=== PATIENT | female | born 1950 | race Caucasian/White ===

== ENCOUNTER 2025-08-15 17:31 | Observation (INO) | payer MEDICARE, SELFPAY ==
[2025-08-15] VITALS (34 sets, daily range): BP systolic 116–161; BP diastolic 63–86; PULSE 66–98; RESP 13–26; O2SAT 92–98; BMI 26.9
--- NOTE | 2025-08-15 17:48 | DI.RAD.S_ITS ---
PROCEDURE: XR CHEST 1V INDICATIONS: chest pain TECHNIQUE: One view of the chest was acquired. COMPARISON: None. FINDINGS: Surgical changes and devices: None. Lungs and pleura: Lungs are clear. No pleural effusions or pneumothorax. Mediastinum: Mediastinal contours appear normal. Heart size is enlarged. Bones and chest wall: No suspicious bony lesions. Overlying soft tissues appear unremarkable. IMPRESSION: No acute pulmonary process. Dictated by: Janie Knox M.D. on 08/15/2025 at 19:31 Approved by: Janie Knox M.D. on 08/15/2025 at 19:31
--- NOTE | 2025-08-15 17:48 | EKG_ITS ---
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
--- NOTE | 2025-08-15 18:03 | ED.CHESTPAIN ---
HPI - Chest Pain General Chief Complaint: Chest Pain Stated Complaint: chest pn 20 min & palpitations Time Seen by Provider: 08/15/25 17:49 Source: patient History of Present Illness HPI narrative: 75-year-old female history of hypertension, dyslipidemia, aspirin 81 mg daily presents with chest discomfort which she describes as a band across her lower chest radiating up towards her arms she describes it as a pressure. This happened 10 times in the past 6 months but had 3 episodes today lasting approximately 15 minutes and then resolving. The 1st time patient was sitting at a computer, neck she was standing the 3rd she was here in the department being evaluated. She states she will feel a little bit hot and sweaty. She feels little bit short of breath. She denies any vomiting but has had nausea with it. She denies any other diarrhea or constipation, no urinary symptoms. No swelling of her extremities. No long distance travel. Patient states home medications are lisinopril, bupropion, Celexa, atorvastatin and aspirin 81 mg daily. She has not had her aspirin today. She has a hip prior hysterectomy, ankle repair, shoulder surgery for rotator cuff. No prior cardiac interventions. She had describes an allergy to meloxicam she has a hot and a rash. Denies tobacco, has 1 or 2 alcoholic drinks most days, no recreational drugs. She is accompanied by a friend. Related Data Allergies Allergy/AdvReac Type Severity Reaction Status Date / Time meloxicam Allergy Rash Verified 08/15/25 17:43 Review of Systems Review of Systems ROS Unobtainable: All systems reviewed & are unremarkable except as noted in HPI and below Patient History Social History Smoking Status: Never smoker Smoking Status: Never smoker Alcohol type: wine Exam Narrative Exam Narrative: GENERAL: Alert and oriented x three, female mild distress, no diaphoresis HEENT: Head normocephalic, atraumatic, EOMI, pupils reactive, face symmetric, moist mucous membranes NECK: Supple, full range of motion CARDIOVASCULAR: Regular rate and rhythm without murmurs, rubs or gallops. No JVD. No edema bilateral lower extremities. RESPIRATORY: Breath sounds equal bilaterally, no wheezes rales or rhonchi. No tachypnea accessory muscle use ABDOMEN: Soft, nontender. Normoactive bowel sounds all 4 quadrants. No guarding or rebound, rigidity, no mass : No CVA tenderness EXTREMITIES: Normal range of motion, no clubbing or edema. Neurovascularly intact NEUROLOGICAL: Cranial nerves II through XII grossly intact. Moving all extremities SKIN: Warm, dry, no petechiae, no rashes or lesions. Initial Vital Signs Initial Vital Signs: Vital Signs Pulse Rate 86 08/15/25 17:42 Respiratory Rate 15 08/15/25 17:42 Pulse Oximetry 96 08/15/25 17:42 Course Orders Ordered: ED Orders 08/15/25 17:48 XR chest 1V Stat EKG-12 Lead Stat 08/15/25 17:56 Complete Blood Count AUTO DIFF Stat Comprehensive Metabolic Panel Stat Lipase Stat Magnesium Stat NT-proBNP (BNP-Adult 18+) Stat Troponin I Stat 08/15/25 18:31 EKG-12 Lead Stat 08/15/25 20:19 Troponin I Stat Nitroglycerin (Nitroglycerin 0.4 Mg Sl Tab) 0.4 mg SL [id number] PRN PRN Reason: Chest Pain Last Admin: 08/15/25 18:16 Dose: 0.4 mg Documented By: FLORENCIO Discontinued Medications Aspirin (Aspirin 81 Mg Chew Tab) 324 mg PO NOW ONE Stop: 08/15/25 17:49 Last Admin: 08/15/25 18:13 Dose: 324 mg Documented By: FLORENCIO Lorazepam (Lorazepam 0.5 Mg Tablet) 0.5 mg PO NOW ONE Stop: 08/15/25 22:16 Last Admin: 08/15/25 22:21 Dose: 0.5 mg Documented By: [place] Vital Signs Vital signs: Vital Signs - 8 hr 08/15/25 17:42 08/15/25 17:43 08/15/25 17:43 Pulse Rate 86 85 85 Respiratory Rate 15 16 13 Blood Pressure 158/86 H Pulse Oximetry 96 95 96 Oxygen Delivery Method Room Air Oxygen Flow Rate 08/15/25 17:43 08/15/25 17:45 08/15/25 17:50 Pulse Rate 84 80 Respiratory Rate 14 Blood Pressure 158/86 H Pulse Oximetry 96 Oxygen Delivery Method Oxygen Flow Rate 08/15/25 17:55 08/15/25 18:00 08/15/25 18:00 Pulse Rate 81 82 Respiratory Rate 26 H Blood Pressure 161/77 H Pulse Oximetry 95 Oxygen Delivery Method Oxygen Flow Rate 08/15/25 18:05 08/15/25 18:10 08/15/25 18:15 Pulse Rate 85 84 87 Respiratory Rate 21 24 21 Blood Pressure Pulse Oximetry 94 94 92 Oxygen Delivery Method Nasal Cannula Oxygen Flow Rate 2 08/15/25 18:16 08/15/25 18:18 08/15/25 18:18 Pulse Rate 81 82 Respiratory Rate 19 Blood Pressure 143/76 H 143/76 H Pulse Oximetry 94 Oxygen Delivery Method Oxygen Flow Rate 08/15/25 18:20 08/15/25 18:20 08/15/25 18:25 Pulse Rate 82 Respiratory Rate 21 Blood Pressure 144/77 H 120/66 Pulse Oximetry 95 Oxygen Delivery Method Nasal Cannula Oxygen Flow Rate 2 08/15/25 18:25 08/15/25 18:30 08/15/25 18:30 Pulse Rate 98 H 87 Respiratory Rate 21 20 Blood Pressure 130/69 Pulse Oximetry 93 95 Oxygen Delivery Method Oxygen Flow Rate 08/15/25 18:35 08/15/25 18:35 08/15/25 18:40 Pulse Rate 80 Respiratory Rate 24 Blood Pressure 130/79 129/77 Pulse Oximetry 96 Oxygen Delivery Method Oxygen Flow Rate 08/15/25 18:40 08/15/25 18:45 08/15/25 18:45 Pulse Rate 81 83 Respiratory Rate 22 22 Blood Pressure 126/75 Pulse Oximetry 96 96 Oxygen Delivery Method Oxygen Flow Rate 08/15/25 18:50 08/15/25 18:50 08/15/25 18:55 Pulse Rate 80 Respiratory Rate 18 Blood Pressure 131/77 122/73 Pulse Oximetry 96 Oxygen Delivery Method Oxygen Flow Rate 08/15/25 18:55 08/15/25 19:00 08/15/25 19:00 Pulse Rate 81 81 Respiratory Rate 20 18 Blood Pressure 116/69 Pulse Oximetry 95 97 Oxygen Delivery Method Oxygen Flow Rate 08/15/25 19:05 08/15/25 19:05 08/15/25 19:10 Pulse Rate 80 Respiratory Rate 20 Blood Pressure 118/67 126/75 Pulse Oximetry 96 Oxygen Delivery Method Oxygen Flow Rate 08/15/25 19:10 08/15/25 19:16 08/15/25 19:16 Pulse Rate 80 83 Respiratory Rate 16 25 H Blood Pressure 142/81 H Pulse Oximetry 97 97 Oxygen Delivery Method Oxygen Flow Rate 08/15/25 19:20 08/15/25 19:20 08/15/25 19:28 Pulse Rate 80 80 Respiratory Rate 21 21 Blood Pressure 128/63 Pulse Oximetry 97 97 Oxygen Delivery Method Oxygen Flow Rate 08/15/25 19:28 08/15/25 19:30 08/15/25 19:30 Pulse Rate 83 Respiratory Rate 19 Blood Pressure 134/69 134/70 Pulse Oximetry 98 Oxygen Delivery Method Oxygen Flow Rate 08/15/25 20:00 08/15/25 20:00 08/15/25 20:30 Pulse Rate 69 Respiratory Rate 22 Blood Pressure 129/63 134/70 Pulse Oximetry 96 Oxygen Delivery Method Oxygen Flow Rate 08/15/25 20:30 08/15/25 21:00 08/15/25 21:00 Pulse Rate 70 68 Respiratory Rate 22 18 Blood Pressure 126/63 Pulse Oximetry 95 96 Oxygen Delivery Method Oxygen Flow Rate 08/15/25 21:30 08/15/25 21:30 08/15/25 22:00 Pulse Rate 69 Respiratory Rate 16 Blood Pressure 141/63 H 129/64 Pulse Oximetry 95 Oxygen Delivery Method Oxygen Flow Rate 08/15/25 22:00 Pulse Rate 66 Respiratory Rate 14 Blood Pressure Pulse Oximetry 92 Oxygen Delivery Method Oxygen Flow Rate MDM - Chest Pain Lab Data 08/15/25 17:56 08/15/25 17:56 Labs: Lab Results 08/15/25 08/15/25 Range/Units 17:56 20:19 WBC 7.8 (4.5-11.0) X10^3/uL RBC 4.80 (4.0-5.2) X10^6/uL Hgb 14.3 (12.0-16.0) g/dL Hct 41.3 (36-46) % MCV 86.0 (80-100) fL MCH 29.8 (26-34) PG MCHC 34.7 (30-36) % RDW 13.5 (11.6-14.8) % Plt Count 295 (150-400) X10^3/uL Neut % (Auto) 68.9 (50-75) % Lymph % (Auto) 18.7 L (25-40) % [place] % (Auto) 9.6 (3-14) % Eos % (Auto) 2.3 (2-4) % Baso % (Auto) 0.5 (0-2) % Neut # (Auto) 5300 (6112-3927) /uL Lymph # (Auto) 1500 (5392-1255) /uL [place] # (Auto) 700 (0-900) /uL Eos # (Auto) 200 (0-450) /uL Baso # (Auto) 0 (0-100) /uL Sodium 139 (137-145) mmol/L Potassium 3.4 (3.4-5.1) mmol/L Chloride 105 (98-107) mmol/L Carbon Dioxide 26 (22-32) mmol/L BUN 29 H (7-17) mg/dL Creatinine 0.93 (0.52-1.04) mg/dL Estimated GFR > 60 (>60) mL/min BUN/Creatinine Ratio 31.2 H (6-22) Glucose 128 H (70-99) mg/dL Calcium 9.3 (8.4-10.2) mg/dL Magnesium 1.7 (1.6-2.3) mg/dL Total Bilirubin 0.6 (0.2-1.3) mg/dL AST 25 (14-36) IU/L ALT 20 (<35) IU/L Alkaline Phosphatase 67 (38-126) U/L Troponin I < 0.012 < 0.012 (0.01-0.034) ng/mL NT-Pro-B Natriuret Pep 174 (<450) pg/mL Total Protein 7.0 (6.3-8.2) g/dL Albumin 4.5 (3.5-5.0) g/dL Globulin 2.5 (1.7-4.1) g/dL Albumin/Globulin Ratio 1.8 (1.0-2.8) Lipase 162 (23-300) U/L ECG Data Attestation: I personally reviewed and interpreted this ECG as follows: Prior ECG tracings: not available for review Interpretation: Sinus rhythm right bundle-branch block rate 80 PA 144 QRS of 124 QTC 456, no acute ST-elevation depression noted. Repeat EKG shows sinus rhythm right bundle-branch block rate 80, PA 152 QRS of 128 QTC of 454, no acute ST-elevation depression appreciated. MDM Narrative Medical decision making narrative: EKG shows sinus rhythm no acute ST-elevation depression, right bundle-branch block. No priors for comparison Labs show normal white count, hemoglobin and platelets, chemistries show BUN 29 glucose of 128 normal creatinine electrolytes, LFTs are normal troponins less than 0.012 with a BNP of 174. Repeat troponins less than 0.012 Patient had aspirin 324 mg, nitro sublingual with the patient states made her symptoms worse. Spoke with patient would like to keep for chest pain observation/concern for unstable angina. Patient does not wish to stay for chest pain obs as she would have to board in the ED. Discussed concerns for angina that is a cardiac source. We do not currently have bed upstairs patient is reluctant to board overnight. Discussed recommendations from Cardiology and if they have beds available at [facility] if she would be willing to transfer. Spoke with Dr. Patel 474. Had stress ECHO three years prior. Does follow with Dr. Brown, at that time was seeing them for shortness of breath. He recommend exercise nuclear stress test tomorrow a.m. to stop any beta-blockers if she is taking them. Spoke with hospitalist, Dr. Hollins hospitalist who accepts for observation. Discharge Plan Departure Patient Disposition: Admitted as Observation Clinical Impression: Chest pain Qualifiers: Chest pain type: unspecified Qualified Code(s): R07.9 - Chest pain, unspecified Admit Date/Time: 08/15/25 22:13 Admit Provider: Justyn Hollins
[2025-08-15 18:08] LABS: Add Manual Diff / Slide Review NO; Hematocrit 41.3 % (36-46); Hemoglobin 14.3 g/dL (12.0-16.0); Lymphocytes Absolute Auto 1500 /uL (1100-4500); Mean Corpuscular HGB Conc 34.7 % (30-36); Mean Corpuscular Hemoglobin 29.8 PG (26-34); Mean Corpuscular Volume 86.0 fL (80-100); Platelet Count 295 X10^3/uL (150-400)
[2025-08-15] MEDS: ASPIRIN 81 MG CHEW TAB 324 MG PO (18:13)
[2025-08-15] MEDS: NITROGLYCERIN 0.4 MG SL TAB SL (18:16)
[2025-08-15 18:18] LABS: Alanine Aminotransferase 20 IU/L (<35); Albumin 4.5 g/dL (3.5-5.0); Albumin Globulin Ratio 1.8 (1.0-2.8); Alkaline Phosphatase 67 U/L (38-126); Blood Urea Nitrogen 29 mg/dL (7-17); Calcium 9.3 mg/dL (8.4-10.2); Carbon Dioxide 26 mmol/L (22-32); Chloride 105 mmol/L (98-107); Estimated Glomerular Filt Rate > 60 mL/min (>60); Globulin 2.5 g/dL (1.7-4.1); Glucose 128 mg/dL (70-99); HEMOLYSIS 18 (0-50); Lipase 162 U/L (23-300); Magnesium 1.7 mg/dL (1.6-2.3); Potassium 3.4 mmol/L (3.4-5.1); Sodium 139 mmol/L (137-145); Total Protein 7.0 g/dL (6.3-8.2)
[2025-08-15 18:30] LABS: NT-proBNP (BNP-Adult 18+) 174 pg/mL (<450); Troponin I < 0.012 ng/mL (0.01-0.034)
--- NOTE | 2025-08-15 18:31 | EKG_ITS ---
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
--- NOTE | 2025-08-15 18:45 | PC.NURSE ---
Pt complained that a toddler was sitting on her chest when I entered the room. Pt was given baby asa, and one nitroglycerin. placed on oxygen 2l nc . pt reports that after the nitroglycerin. she felt like an elephant is sitting on chest. repeat EKg. vital signs charted. dr. mendoza aware of the above.
[2025-08-15 20:51] LABS: Troponin I < 0.012 ng/mL (0.01-0.034)
--- NOTE | 2025-08-15 22:19 | PM.HP.1 ---
History of Present Illness History of Present Illness Chief complaint: chest pn 20 min & palpitations Narrative: 75F with PMH of HTN, hyperlipidemia, past episode of dyspnea with negative stress echo 3y ago presents with 6 months/10 episodes of bandlike lower chest pressure radiating to both arms and then self-resolving after 15 minutes. However, she had 3 episodes today including one in the ED. This is associated with feeling warm and sweats as well as mild dyspnea but no N/V. No other symptoms. EKG showed SR with no acute changes. Troponin x2 were negative. BNP was unremarkable. She reeceived ASA 324 in the ED. SLNTG apparently made the symptoms worse. 75-year-old female history of hypertension, dyslipidemia, aspirin 81 mg daily presents with chest discomfort which she describes as a band across her lower chest radiating up towards her arms she describes it as a pressure. This happened 10 times in the past 6 months but had 3 episodes today lasting approximately 15 minutes and then resolving. The 1st time patient was sitting at a computer, neck she was standing the 3rd she was here in the department being evaluated. She states she will feel a little bit hot and sweaty. She feels little bit short of breath. She denies any vomiting but has had nausea with it. She denies any other diarrhea or constipation, no urinary symptoms. No swelling of her extremities. No long distance travel. Patient states home medications are lisinopril, bupropion, Celexa, atorvastatin and aspirin 81 mg daily. She has not had her aspirin today. She has a hip prior hysterectomy, ankle repair, shoulder surgery for rotator cuff. No prior cardiac interventions. She had describes an allergy to meloxicam she has a hot and a rash. Denies tobacco, has 1 or 2 alcoholic drinks most days, no recreational drugs. She is accompanied by a friend. EKG shows sinus rhythm no acute ST-elevation depression, right bundle-branch block. No priors for comparison Labs show normal white count, hemoglobin and platelets, chemistries show BUN 29 glucose of 128 normal creatinine electrolytes, LFTs are normal troponins less than 0.012 with a BNP of 174. Repeat troponins less than 0.012 Patient had aspirin 324 mg, nitro sublingual with the patient states made her symptoms worse. On interview, this was almost identical to what happened 3 years ago when she had the stress echo. The recent episodes happen randomly, are associated with nausea but no vomiting, and resolve quickly with ongoing nausea for several hours after that. PENDING SALE TO [facility] Social History Smoking Status: Never smoker Meds Home Medications and Allergies Allergies Allergy/AdvReac Type Severity Reaction Status Date / Time meloxicam Allergy Rash Verified 08/15/25 17:43 Review of Systems Review of Systems Narrative: As per HPI. Rest of 10-system review negative. Exam Vital Signs (past 8 hours): - 08/15/25 17:42 08/15/25 17:43 08/15/25 17:43 Pulse Rate 86 85 85 Respiratory Rate 15 16 13 Blood Pressure 158/86 H Pulse Oximetry 96 95 96 Oxygen Delivery Method Room Air Oxygen Flow Rate 08/15/25 17:43 08/15/25 17:45 08/15/25 17:50 Pulse Rate 84 80 Respiratory Rate 14 Blood Pressure 158/86 H Pulse Oximetry 96 Oxygen Delivery Method Oxygen Flow Rate 08/15/25 17:55 08/15/25 18:00 08/15/25 18:00 Pulse Rate 81 82 Respiratory Rate 26 H Blood Pressure 161/77 H Pulse Oximetry 95 Oxygen Delivery Method Oxygen Flow Rate 08/15/25 18:05 08/15/25 18:10 08/15/25 18:15 Pulse Rate 85 84 87 Respiratory Rate 21 24 21 Blood Pressure Pulse Oximetry 94 94 92 Oxygen Delivery Method Nasal Cannula Oxygen Flow Rate 2 08/15/25 18:16 08/15/25 18:18 08/15/25 18:18 Pulse Rate 81 82 Respiratory Rate 19 Blood Pressure 143/76 H 143/76 H Pulse Oximetry 94 Oxygen Delivery Method Oxygen Flow Rate 08/15/25 18:20 08/15/25 18:20 08/15/25 18:25 Pulse Rate 82 Respiratory Rate 21 Blood Pressure 144/77 H 120/66 Pulse Oximetry 95 Oxygen Delivery Method Nasal Cannula Oxygen Flow Rate 2 08/15/25 18:25 08/15/25 18:30 08/15/25 18:30 Pulse Rate 98 H 87 Respiratory Rate 21 20 Blood Pressure 130/69 Pulse Oximetry 93 95 Oxygen Delivery Method Oxygen Flow Rate 08/15/25 18:35 08/15/25 18:35 08/15/25 18:40 Pulse Rate 80 Respiratory Rate 24 Blood Pressure 130/79 129/77 Pulse Oximetry 96 Oxygen Delivery Method Oxygen Flow Rate 08/15/25 18:40 08/15/25 18:45 08/15/25 18:45 Pulse Rate 81 83 Respiratory Rate 22 22 Blood Pressure 126/75 Pulse Oximetry 96 96 Oxygen Delivery Method Oxygen Flow Rate 08/15/25 18:50 08/15/25 18:50 08/15/25 18:55 Pulse Rate 80 Respiratory Rate 18 Blood Pressure 131/77 122/73 Pulse Oximetry 96 Oxygen Delivery Method Oxygen Flow Rate 08/15/25 18:55 08/15/25 19:00 08/15/25 19:00 Pulse Rate 81 81 Respiratory Rate 20 18 Blood Pressure 116/69 Pulse Oximetry 95 97 Oxygen Delivery Method Oxygen Flow Rate 08/15/25 19:05 08/15/25 19:05 08/15/25 19:10 Pulse Rate 80 Respiratory Rate 20 Blood Pressure 118/67 126/75 Pulse Oximetry 96 Oxygen Delivery Method Oxygen Flow Rate 08/15/25 19:10 08/15/25 19:16 08/15/25 19:16 Pulse Rate 80 83 Respiratory Rate 16 25 H Blood Pressure 142/81 H Pulse Oximetry 97 97 Oxygen Delivery Method Oxygen Flow Rate 08/15/25 19:20 08/15/25 19:20 08/15/25 19:28 Pulse Rate 80 80 Respiratory Rate 21 21 Blood Pressure 128/63 Pulse Oximetry 97 97 Oxygen Delivery Method Oxygen Flow Rate 08/15/25 19:28 08/15/25 19:30 08/15/25 19:30 Pulse Rate 83 Respiratory Rate 19 Blood Pressure 134/69 134/70 Pulse Oximetry 98 Oxygen Delivery Method Oxygen Flow Rate 08/15/25 20:00 08/15/25 20:00 08/15/25 20:30 Pulse Rate 69 Respiratory Rate 22 Blood Pressure 129/63 134/70 Pulse Oximetry 96 Oxygen Delivery Method Oxygen Flow Rate 08/15/25 20:30 08/15/25 21:00 08/15/25 21:00 Pulse Rate 70 68 Respiratory Rate 22 18 Blood Pressure 126/63 Pulse Oximetry 95 96 Oxygen Delivery Method Oxygen Flow Rate 08/15/25 21:30 08/15/25 21:30 08/15/25 22:00 Pulse Rate 69 Respiratory Rate 16 Blood Pressure 141/63 H 129/64 Pulse Oximetry 95 Oxygen Delivery Method Oxygen Flow Rate 08/15/25 22:00 Pulse Rate 66 Respiratory Rate 14 Blood Pressure Pulse Oximetry 92 Oxygen Delivery Method Oxygen Flow Rate Oxygen Delivery Method Nasal Cannula Oxygen Flow Rate 2 Narrative Exam Narrative: Patient was evaluated entirely through 2-way audio/video telemedicine with RN assistance in exam. Physician was not present at beside in person at any time for this evaluation. Consent for telemedicine obtained from patient. Const Other: AA, NAD HENMT Other: NC/AT, PERRL, anicteric sclerae, MMM, patent nares Neck Other: FROM Chest Other: no chest wall tenderness Resp Other: CTA-B Cardio Other: RRR GI Other: S/NT/ND/+BS Skin Other: no rash Extrem Other: no edema Objective ECG Impression: SR. no acute changes Imaging Chest x-ray: Radiologist's impression: No acute disease. Labs 08/15/25 17:56 08/15/25 17:56 Labs: Laboratory Results - last 24 hr 08/15/25 08/15/25 17:56 20:19 WBC 7.8 RBC 4.80 Hgb 14.3 Hct 41.3 MCV 86.0 MCH 29.8 MCHC 34.7 RDW 13.5 Plt Count 295 Neut % (Auto) 68.9 Lymph % (Auto) 18.7 L [place] % (Auto) 9.6 Eos % (Auto) 2.3 Baso % (Auto) 0.5 Neut # (Auto) 5300 Lymph # (Auto) 1500 [place] # (Auto) 700 Eos # (Auto) 200 Baso # (Auto) 0 Sodium 139 Potassium 3.4 Chloride 105 Carbon Dioxide 26 BUN 29 H Creatinine 0.93 Estimated GFR > 60 BUN/Creatinine Ratio 31.2 H Glucose 128 H Calcium 9.3 Magnesium 1.7 Total Bilirubin 0.6 AST 25 ALT 20 Alkaline Phosphatase 67 Troponin I < 0.012 < 0.012 NT-Pro-B Natriuret Pep 174 Total Protein 7.0 Albumin 4.5 Globulin 2.5 Albumin/Globulin Ratio 1.8 Lipase 162 Assessment & Plan Assessment and plan (1) Chest pain: Qualifiers: Chest pain type: unspecified Qualified Code(s): R07.9 - Chest pain, unspecified Status: Acute Assessment & Plan narrative: 75F with only cardiac history of HTN and hyperlipidemia presents with unstable angina, increased in frequency today. 1. Acute chest pain radiating down both arms, self-limited, POA 2. HTN 3. Hyperlipidemia Plan: 1. Admit to observation, telemetry 2. No need for ongoing troponins as first two were negative and this has been going on for some time. 3. s/p ASA 324 4. Nuclear stress test tomorrow 5. Cardiac diet 6. Dilaudid prn for pain Code: Full DVT prophylaxis: SCDs Dispo: likely home Time-Based Coding :: [TOTAL MINUTES] spent with patient and on the chart (including review of chart, obtaining history, exam, reviewing outside data, placing orders, documenting exam and treatment plan, and counseling patient) on [DATE].
[2025-08-16] VITALS (27 sets, daily range): BP systolic 120–131; BP diastolic 68–80; PULSE 60–75; RESP 12–27; TEMP 36.7; O2SAT 94–97; BMI 26.9
--- NOTE | 2025-08-16 07:35 | PC.NURSE ---
report given to Natasha NICOLAS
[2025-08-16 11:21] LABS: Add Manual Diff / Slide Review NO; Hematocrit 40.4 % (36-46); Hemoglobin 14.0 g/dL (12.0-16.0); Lymphocytes Absolute Auto 1800 /uL (1100-4500); Mean Corpuscular HGB Conc 34.7 % (30-36); Mean Corpuscular Hemoglobin 29.7 PG (26-34); Mean Corpuscular Volume 85.6 fL (80-100); Platelet Count 253 X10^3/uL (150-400)
--- NOTE | 2025-08-16 11:23 | PC.NURSE ---
pt to stress test . first part
--- NOTE | 2025-08-16 11:23 | PC.NURSE ---
1110: Pt denies any chest pain at this time.
[2025-08-16 11:33] LABS: Blood Urea Nitrogen 17 mg/dL (7-17); Calcium 9.1 mg/dL (8.4-10.2); Carbon Dioxide 27 mmol/L (22-32); Chloride 107 mmol/L (98-107); Estimated Glomerular Filt Rate > 60 mL/min (>60); Glucose 92 mg/dL (70-99); HEMOLYSIS < 15 (0-50); Magnesium 1.9 mg/dL (1.6-2.3); Potassium 3.7 mmol/L (3.4-5.1); Sodium 140 mmol/L (137-145)
--- NOTE | 2025-08-16 12:58 | PC.NURSE ---
Addendum entered by Irene Gray RN 08/16/25 14:35: Patient discharged to home at 1400 with spouse, escorted to hospital exit via wheelchair by staff member. Written and verbal d/c instructions given on GERD, carafate, protonix, all questions answered. All belongings with pt including home meds, purse, clothing, shoes, cell phone. Original Note: Admit Note Patient arrived to room 224 from ER via wheelchair at 1215. Alert and oriented x3, SBA in room, steady on feet. Denies pain. Instructed to notify staff if chest pain returns. SR BBB in the 70s. Stress test done today. Oriented to room and to call light/bed/tv controls. Call light within reach, using appropriately to make needs known. Belongings in room, clothing/cell phone/purse/shoes all at bedside, declines to lock up valuables. Medications at bedside and will be sent home with .
--- NOTE | 2025-08-16 13:32 | P.DS_ITS ---
History of Present Illness History of Present Illness Date Patient Seen: 08/16/25 Chief complaint: chest pn 20 min & palpitations Narrative: Chief complaint: Epigastric pain radiating to the back radiating to the arms History of present illness: 08/15: (per nocturnal physician) 75F with PMH of HTN, hyperlipidemia, past episode of dyspnea with negative stress echo 3y ago presents with 6 months/10 episodes of bandlike lower chest pressure radiating to both arms and then self- resolving after 15 minutes. However, she had 3 episodes today including one in the ED. This is associated with feeling warm and sweats as well as mild dyspnea but no N/V. No other symptoms. EKG showed SR with no acute changes. Troponin x2 were negative. BNP was unremarkable. She reeceived ASA 324 in the ED. SLNTG apparently made the symptoms worse. 75-year-old female history of hypertension, dyslipidemia, aspirin 81 mg daily presents with chest discomfort which she describes as a band across her lower chest radiating up towards her arms she describes it as a pressure. This happened 10 times in the past 6 months but had 3 episodes today lasting approximately 15 minutes and then resolving. The 1st time patient was sitting at a computer, neck she was standing the 3rd she was here in the department being evaluated. She states she will feel a little bit hot and sweaty. She feels little bit short of breath. She denies any vomiting but has had nausea with it. She denies any other diarrhea or constipation, no urinary symptoms. No swelling of her extremities. No long distance travel. Patient states home medications are lisinopril, bupropion, Celexa, atorvastatin and aspirin 81 mg daily. She has not had her aspirin today. She has a hip prior hysterectomy, ankle repair, shoulder surgery for rotator cuff. No prior cardiac interventions. She had describes an allergy to meloxicam she has a hot and a rash. Denies tobacco, has 1 or 2 alcoholic drinks most days, no recreational drugs. She is accompanied by a friend. EKG shows sinus rhythm no acute ST-elevation depression, right bundle-branch block. No priors for comparison Labs show normal white count, hemoglobin and platelets, chemistries show BUN 29 glucose of 128 normal creatinine electrolytes, LFTs are normal troponins less than 0.012 with a BNP of 174. Repeat troponins less than 0.012 Patient had aspirin 324 mg, nitro sublingual with the patient states made her symptoms worse. On interview, this was almost identical to what happened 3 years ago when she had the stress echo. The recent episodes happen randomly, are associated with nausea but no vomiting, and resolve quickly with ongoing nausea for several hours after that. Hospital course: 08/16: Stress test was negative but interviewing the patient she has had a history of esophageal disease in the symptoms also seem to be provoked if she eats too fast and then rushes Physical exam No acute distress No labored respiration No large neck findings Assessment and plan: * Chest pain likely secondary to esophagitis or reflux with a history outside and ?precancerous ?areas of her esophagus * Protonix and Carafate * Discharged home Follow up with PCP and referral to air traffic control specialist Time based billing: * 35 minutes were involved in evaluation of this patient including [id number] evaluation with the patient physical examination discussion of the findings history and likely diagnosis and treatment plan afterwards with both the patient and her review of objective EKG laboratory and imaging Discharge Providers Provider Date of admission: 08/15/25 22:13 Discharge Date: 09/21/25 Discharge provider: Tray Ferrell MD Exam Vital Signs (past 8 hours): - 08/16/25 06:00 08/16/25 06:30 08/16/25 07:00 Temperature Pulse Rate 68 65 64 Respiratory Rate 20 19 18 Blood Pressure Pulse Oximetry Oxygen Delivery Method Oxygen Flow Rate 08/16/25 07:30 08/16/25 08:00 08/16/25 08:30 Temperature Pulse Rate 66 63 67 Respiratory Rate 24 20 27 H Blood Pressure Pulse Oximetry Oxygen Delivery Method Oxygen Flow Rate 08/16/25 08:38 08/16/25 08:38 08/16/25 08:40 Temperature Pulse Rate 66 66 Respiratory Rate 20 12 Blood Pressure 124/72 124/72 Pulse Oximetry 94 Oxygen Delivery Method Room Air Oxygen Flow Rate 08/16/25 09:00 08/16/25 09:15 08/16/25 09:15 Temperature Pulse Rate 67 64 Respiratory Rate 18 20 Blood Pressure 122/68 Pulse Oximetry 97 96 Oxygen Delivery Method Oxygen Flow Rate 08/16/25 09:30 08/16/25 09:30 08/16/25 10:00 Temperature Pulse Rate 65 66 Respiratory Rate 23 13 Blood Pressure 120/69 Pulse Oximetry 94 94 Oxygen Delivery Method Oxygen Flow Rate 08/16/25 10:00 12/02/25 11:01 08/16/25 12:15 Temperature 98.0 F Pulse Rate 63 72 Respiratory Rate 26 H 16 Blood Pressure 131/76 127/80 Pulse Oximetry 96 95 Oxygen Delivery Method Oxygen Flow Rate 0 08/16/25 12:56 Temperature Pulse Rate Respiratory Rate Blood Pressure Pulse Oximetry Oxygen Delivery Method Room Air Oxygen Flow Rate Oxygen Delivery Method Room Air Oxygen Flow Rate 0 Objective Labs 08/16/25 11:15 08/16/25 11:15 Labs: Laboratory Results - last 24 hr 08/15/25 08/15/25 08/16/25 17:56 20:19 11:15 WBC 7.8 6.4 RBC 4.80 4.72 Hgb 14.3 14.0 Hct 41.3 40.4 MCV 86.0 85.6 MCH 29.8 29.7 MCHC 34.7 34.7 RDW 13.5 13.6 Plt Count 295 253 Neut % (Auto) 68.9 58.9 Lymph % (Auto) 18.7 L 27.6 [place] % (Auto) 9.6 9.9 Eos % (Auto) 2.3 2.9 Baso % (Auto) 0.5 0.7 Neut # (Auto) 5300 3800 Lymph # (Auto) 1500 1800 [place] # (Auto) 700 600 Eos # (Auto) 200 200 Baso # (Auto) 0 0 Sodium 139 140 Potassium 3.4 3.7 Chloride 105 107 Carbon Dioxide 26 27 BUN 29 H 17 Creatinine 0.93 0.67 Estimated GFR > 60 > 60 BUN/Creatinine Ratio 31.2 H 25.4 H Glucose 128 H 92 Calcium 9.3 9.1 Magnesium 1.7 1.9 Total Bilirubin 0.6 AST 25 ALT 20 Alkaline Phosphatase 67 Troponin I < 0.012 < 0.012 NT-Pro-B Natriuret Pep 174 Total Protein 7.0 Albumin 4.5 Globulin 2.5 Albumin/Globulin Ratio 1.8 Lipase 162 PFSH Social History household members: spouse Smoking Status: Never smoker alcohol intake: current Discharge Plan Discharge Plan Patient Disposition: Home Discharge orders & Medications Prescriptions: New pantoprazole [Protonix] [address] for susp in packet 40 mg PO DAILY Qty: 30 0RF sucralfate [Carafate] 100 mg/mL suspension 10 ml PO QID Qty: 420 1RF Rx Instructions: swish in mouth and swallow; use after food/drink Continued hydrochlorothiazide 25 mg tablet 25 mg PO DAILY celecoxib [Celebrex] 200 mg capsule 200 mg PO DAILY atorvastatin 20 mg tablet 20 mg PO BEDTIME Rx Instructions: EVERY OTHER DAY losartan [Cozaar] 50 mg tablet 50 mg PO DAILY bupropion HCl 150 mg tablet extended release 24 hr 300 mg PO DAILY Visit Report/Discharge Packet Stand Alone Forms: Patient Portal/API, Stroke Signs & Symptoms Discharge Data Attending Provider: Justyn Hollins Admit Date/Time: 08/15/25 22:13 Quality VTE Deep Vein Thrombosis/Pulmonary Embolism Present on Admission: No
== END 2025-08-16 14:00 | disposition home or self-care (01) ==
LOC: ED 22:13 → AC 22:14
PROVIDERS: Admitting Provider Internal Medicine; Emergency Provider Emergency Medicine; Visit Provider Internal Medicine
DX: R07.9 Chest pain, unspecified (principal); R11.0 Nausea; R06.02 Shortness of breath; R00.2 Palpitations; R61 Generalized hyperhidrosis; I10 Essential (primary) hypertension; E78.5 Hyperlipidemia, unspecified; Z88.6 Allergy status to analgesic agent; Z79.82 Long term (current) use of aspirin; I45.10 Unspecified right bundle-branch block
CPT/HCPCS: 36415; 71045; 78451; 80048; 80053; 83690; 83735; 83880; 84484; 85025; 93005; 93017; 99284; G0378; A9502; J2785